=== PATIENT | female | born 1955 | race Caucasian/White ===

== ENCOUNTER → 2020-11-24 | Outpatient (CLI) | payer MEDICARE, MEDICAID ==
[~2020-11-24] MED LIST: CETI10CA11 PO; CHOL400C PO; CLON-364 PO; CYCL5TAB PO; DEXT20TA8 PO; DIAZ10TA4 PO; DIAZ5TAB PO; ESOM40CA PO; ESTR0.6246 PO; FLUT16SP24 NAS; KETO10DR5 EACHEYE; MECL-101 PO; MORP-29 PO; OXYC10TA6 PO; OXYC1TAB14 PO; SUMA100T4 PO
== END | disposition home or self-care (01) ==
LOC: CFH 11:40
PROVIDERS: ATTEND Physician Assistant Medical
DX: M48.42 Fatigue fracture of vertebra, cervical region (principal)
CPT/HCPCS: 72125